=== PATIENT | male | born 1955 | race African-American/Black ===

== ENCOUNTER 2023-03-12 04:40 | Observation (INO) | payer MEDICARE ==
[2023-03-12 04:53] VITALS: RESP 18
[2023-03-12 05:13] LABS: Basophils % (A) 1 %; Eosinophils # (A) 0.1 k/uL (0-0.7); Eosinophils % (A) 2 %; HCT 37.7 % (39.0-53.0); HGB 12.6 gm/dL (13.0-17.5); Lymphocytes # (A) 2.6 k/uL (1.0-4.8); Lymphocytes % (A) 44 %; MCH 27.2 pg (25.0-35.0); MCHC 33.3 g/dL (31.0-37.0); MCV 81.6 fL (80.0-100.0); Mean Platelet Volume 10.4; Monocytes # (A) 0.3 k/uL (0-1.0); Monocytes % (A) 4 %; Neutrophils # (A) 2.9 k/uL (1.3-7.7); Neutrophils % (A) 48 %; Platelet Count 129 k/uL (150-450); RBC 4.62 m/uL (4.30-5.90); RDW 13.9 % (11.5-15.5)
[2023-03-12 05:21] LABS: INR 0.9 (<1.2); Partial Thromboplastin Time 23.1 sec (22.0-30.0); Prothrombin Time 10.3 sec (10.0-12.5)
[2023-03-12 05:24] LABS: ALT 19 U/L (4-49); AST 33 U/L (17-59); African American GFR (CKD) 74 (>60 ml/min/1.73 sqM); Alkaline Phosphatase 82 U/L (38-126); Anion Gap 4 mmol/L; Blood Urea Nitrogen 21 mg/dL (9-20); Carbon Dioxide 25 mmol/L (22-30); Chloride 113 mmol/L (98-107); Glucose 157 mg/dL (74-99); Lipase 220 U/L (23-300); Magnesium 2.1 mg/dL (1.6-2.3); Non-African American GFR(CKD) 64 (>60 ml/min/1.73 sqM); Potassium 3.9 mmol/L (3.5-5.1); Sodium 142 mmol/L (137-145); Total Bilirubin 0.3 mg/dL (0.2-1.3)
[2023-03-12 05:32] LABS: NT-Pro-B-Type Natriuretic Pept 120 pg/mL
--- NOTE | 2023-03-12 05:54 | XR ---
EXAM: XR Chest, 2 Views CLINICAL HISTORY: ITS.REASON XR Reason: Chest Pain TECHNIQUE: Frontal and lateral views of the chest. COMPARISON: No relevant prior studies available. FINDINGS: Lungs: Unremarkable. No consolidation. Pleural space: Unremarkable. No pneumothorax. Heart: Unremarkable. No cardiomegaly. Mediastinum: Unremarkable. Normal mediastinal contour. Bones/joints: Unremarkable. No acute fracture. IMPRESSION: Normal chest x-rays.
[2023-03-12] MEDS ORDERED: NALOXONE 0.4 MG/ML 1 ML VIAL IV PRN (06:40)
--- NOTE | 2023-03-12 06:40 | ED ---
Chest Pain HPI - General Chief Complaint: Chest Pain Stated Complaint: Chest pain Time Seen by Provider: 03/12/23 04:43 Source: patient, EMS Mode of arrival: EMS Limitations: no limitations - Related Data Allergies Allergy/AdvReac Type Severity Reaction Status Date / Time No Known Allergies Allergy Verified 03/12/23 04:46 Review of Systems ROS Statement: Those systems with pertinent positive or pertinent negative responses have been documented in the HPI. ROS Other: All systems not noted in ROS Statement are negative. Past Medical History Past Medical History: Hypertension Additional Past Surgical History / Comment(s): bowel resection Past Psychological History: No Psychological Hx Reported Smoking Status: Current every day smoker Past Alcohol Use History: Rare Past Drug Use History: Cocaine General Exam Limitations: no limitations Course Vital Signs 03/12/23 03/12/23 04:42 06:25 Temperature 97.4 F L Pulse Rate 66 75 Respiratory 18 18 Rate Blood Pressure 176/71 148/89 O2 Sat by Pulse 98 96 Oximetry Chest Pain MDM - MDM Was pt. sent in by a medical professional or institution (, PA, LINING FELLER, urgent care, hospital, or retirement...) When possible be specific @ -[No] Did you speak to anyone other than the patient for history (EMS, parent, family, police, friend...)? What history was obtained from this source @ -[No] Did you review nursing and triage notes (agree or disagree)? Why? @ -[I reviewed and agree with nursing and triage notes] Were old charts reviewed (outside hosp., previous admission, EMS record, old EKG, old radiological studies, urgent care reports/EKG's, retirement records)? Report findings @ -[No old charts were reviewed] Differential Diagnosis (chest pain, altered mental status, abdominal pain women, abdominal pain men, vaginal bleeding, weakness, fever, dyspnea, syncope, headache, dizziness, GI bleed, back pain, seizure, CVA, palpatations, mental health, musculoskeletal)? @ -[not applicable] EKG interpreted by me (3pts min.). @ -Yes and demonstrates sinus rhythm with a rate of 64. SC interval 177. QRS 90. QTc of 404. No acute ST segment elevations. Inverted T wave lead V4 through V6 X-rays interpreted by me (1pt min.). @ -[None done] CT interpreted by me (1pt min.). @ -[None done] U/S interpreted by me (1pt. min.). @ -[None done] What testing was considered but not performed or refused? (CT, X-rays, U/S, labs)? Why? @ -[None] What meds were considered but not given or refused? Why? @ -[None] Did you discuss the management of the patient with other professionals (harry davis i.e. , PA, LINING FELLER, lab, RT, psych nurse, social science manager, manager financial, teacher, u.s. revenue officer, employment case manager)? Give summary @ -[No] Was smoking cessation discussed for >3mins.? @ -[No] Was critical care preformed (if so, how long)? @ -[No] Were there social determinants of health that impacted care today? How? (Homelessness, low income, unemployed, alcoholism, drug addiction, transportation, low edu. Level, literacy, decrease access to med. care, retirement, rehab)? @ -[No] Was there de-escalation of care discussed even if they declined (Discuss DNR or withdrawal of care, Hospice)? DNR status @ -[No] What co-morbidities impacted this encounter? (DM, HTN, Smoking, COPD, CAD, Cancer, CVA, ARF, Chemo, Hep., AIDS, mental health diagnosis, sleep apnea, morbid obesity)? @ -[None] Was patient admitted / discharged? Hospital course, mention meds given and route, prescriptions, significant lab abnormalities, going to OR and other pertinent info. @ -[hospital course] Undiagnosed new problem with uncertain prognosis? @ -[No] Drug Therapy requiring intensive monitoring for toxicity (Heparin, Nitro, Insulin, Cardizem)? @ -[No] Were any procedures done? @ -[No] Diagnosis/symptom? @ -[default] Acute, or Chronic, or Acute on Chronic? @ -[default] Uncomplicated (without systemic symptoms) or Complicated (systemic symptoms)? @ -[default] Side effects of treatment? @ -[No] Exacerbation, Progression, or Severe Exacerbation? @ -[No] Poses a threat to life or bodily function? How? (Chest pain, [place], [place], pneumonia, PE, COPD, DKA, ARF, appy, cholecystitis, CVA, Diverticulitis, Homicidal, [place]wey icidal, threat to staff... and all critical care pts) @ -[No] Disposition Clinical Impression: Chest pain, Abnormal EKG Disposition: ADMITTED IP TO THIS [facility] Condition: Stable Is patient prescribed a controlled substance at d/c from ED?: No Time of Disposition: 06:40 Decision to Admit Reason: Admit from EC Decision Date: 03/12/23 Decision Time: 06:40
[2023-03-12] MEDS ORDERED: ASPIRIN 81 MG PO STA (06:44)
[2023-03-12] MEDS ORDERED: ONDANSETRON 4 MG/2 ML VIAL IVP PRN (07:46)
[2023-03-12] MEDS ORDERED: ACETAMINOPHEN TAB 325 MG TAB PO PRN (07:46)
[2023-03-12] MEDS ORDERED: MELATONIN 3 MG TABLET PO PRN (07:46)
[2023-03-12] MEDS ORDERED: HYDROcodone/APAP 5-325MG 1 EACH TAB PO PRN (07:46)
[2023-03-12] MEDS ORDERED: PANTOPRAZOLE 40 MG TABLET PO SCH (08:00)
[2023-03-12] MEDS ORDERED: METOPROLOL TARTRATE 12.5 MG TAB PO SCH (09:00)
[2023-03-12] MEDS ORDERED: NICOTINE 21MG/24HR PATCH TRANSDERM SCH (09:00)
[2023-03-12] MEDS ORDERED: ASPIRIN 81 MG PO SCH (09:00)
[2023-03-12] MEDS ORDERED: ENOXAPARIN 40 MG/0.4 ML SYRINGE SQ SCH (09:00)
[2023-03-12] MEDS ORDERED: amLODIPine 5 MG TAB PO SCH (09:00)
[2023-03-12] MEDS ORDERED: ATORVASTATIN 40 MG TAB PO SCH (09:00)
--- NOTE | 2023-03-12 10:33 | P.CRDCN ---
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 He is new to the [facility] as he is moved from [place]. He has a past medical history of hypertension, active tobacco use and dependence. We have been asked to evaluate the patient for chest pain. We are seeing the patient today in the emergency center waiting for a bed on the observation unit. Patient gives history of left chest pain mid area lateral to the midsternal line. He states it is light in nature, not sharp. He states he did have some ache in his left arm the other day. He states he has a little lightheadedness. He has not had any previous cardiac workup and denies having history of diabetes. His initial blood pressure 176/71. Patient has been started on amlodipine 5 mg daily, aspirin 81 mg daily, Lipitor 40 mg daily and nicotine patch. EKG sinus rhythm with Q waves in the inferior leads possible LVH Chest x-ray: No acute findings D-dimer 0.23. Hemoglobin 12.6, platelet count 129, WBC 6 Home cardiac medications: None are listed Review Of Systems: At the time of my evaluation: Constitutional: No fever, no chills. No weakness, fatigue or lethargy. EENT: No headache. No dizziness. Lungs: No shortness of breath, cough, no sputum production. No wheezing. Cardiovascular: + chest pain, no lower extremity edema. No palpitations. No paroxysmal nocturnal dyspnea. No orthopnea. No lightheadedness or dizziness. No syncopal episodes. Abdominal: No abdominal pain. No nausea, vomiting. No diarrhea. No constipation. No bloody or tarry stools. Genitourinary: No dysuria.. No urinary retention. Musculoskeletal: No myalgias. No muscle weakness, no frequent falls. No back pain. No neck pain. Integumentary: No wounds. No rash. No unusual bruising. Neurologic: No aphasia. No facial droop. No change in mentation. No head injury. No headache. Physical examination: Gen: This is a 67-year-old black male in no acute distress VS: reviewed HEENT: Head is atraumatic, normocephalic. Pupils equal, round. Sclerae is anicteric. NECK: Supple. No JVD. . LUNGS: Clear to auscultation. No wheezes or rhonchi. No intercostal retractions. HEART: Regular rate and rhythm. No murmur. ABDOMEN: Soft No tenderness. EXTREMITIES: No pedal edema. No calf tenderness. NEUROLOGICAL: Patient is awake, alert and oriented x3. Assessment: Atypical chest pain, acute coronary syndrome ruled out with negative troponins Thrombocytopenia Hypertension Elevated blood sugar Tobacco use and dependence Plan: Continue current medications Schedule patient for stress echocardiogram after third troponin is negative Obtain 2-D echocardiogram and Doppler study to assess cardiac structure and function If testing is unremarkable, patient is cleared from cardiology for discharge home. Thank you kindly for this consultation. Nurse practitioner note has been reviewed, I agree with documented findings and plan of care. Patient was seen and examined. Past Medical History Past Medical History: Hypertension Additional Past Surgical History / Comment(s): bowel resection Past Psychological History: No Psychological Hx Reported Smoking Status: Current every day smoker Past Alcohol Use History: Rare Past Drug Use History: Cocaine Medications and Allergies Home Medications Medication Instructions Recorded Confirmed Type No Known Home Medications 03/12/23 03/12/23 History Allergies Allergy/AdvReac Type Severity Reaction Status Date / Time No Known Allergies Allergy Verified 03/12/23 07:09 Physical Exam Vitals: Vital Signs Temp Pulse Resp BP Pulse Ox 03/12/23 07:33 62 18 142/78 95 03/12/23 06:25 75 18 148/89 96 03/12/23 04:42 97.4 F L 66 18 176/71 98 Intake and Output 03/11/23 03/12/23 03/12/23 22:59 06:59 14:59 Other: Weight 99.79 kg Results 03/12/23 04:47 03/12/23 04:47 Cardiac Enzymes 03/12/23 03/12/23 Range/Units 04:47 04:47 AST 33 (17-59) U/L Troponin I <0.012 (0.000-0.034) ng/mL Coagulation 03/12/23 Range/Units 04:47 PT 10.3 (10.0-12.5) sec APTT 23.1 (22.0-30.0) sec CBC 03/12/23 Range/Units 04:47 WBC 6.0 (3.8-10.6) k/uL RBC 4.62 (4.30-5.90) m/uL Hgb 12.6 L (13.0-17.5) gm/dL Hct 37.7 L (39.0-53.0) % Plt Count 129 L (150-450) k/uL Comprehensive Metabolic Panel 03/12/23 Range/Units 04:47 Sodium 142 (137-145) mmol/L Potassium 3.9 (3.5-5.1) mmol/L Chloride 113 H (98-107) mmol/L Carbon Dioxide 25 (22-30) mmol/L BUN 21 H (9-20) mg/dL Creatinine 1.18 (0.66-1.25) mg/dL Glucose 157 H (74-99) mg/dL Calcium 9.0 (8.4-10.2) mg/dL AST 33 (17-59) U/L ALT 19 (4-49) U/L Alkaline Phosphatase 82 (38-126) U/L Total Protein 7.0 (6.3-8.2) g/dL Albumin 4.0 (3.5-5.0) g/dL Current Medications Generic Name Dose Route Start Last Admin Trade Name Freq PRN Reason Stop Dose Admin Acetaminophen 650 mg 03/12/23 07:46 Acetaminophen Tab 325 Mg Tab PO Q6HR PRN Mild Pain or Fever > 100.5 Hydrocodone Bitart/Acetaminophen 1 each 03/12/23 07:46 Hydrocodone/Apap 5-325mg 1 Each Tab PO Q4HR PRN Moderate Pain (Scale 4 to 6) Amlodipine Besylate 5 mg 03/12/23 09:00 Amlodipine 5 Mg Tab PO DAILY [facility] Aspirin 81 mg 03/12/23 09:00 Aspirin 81 Mg PO DAILY [facility] Atorvastatin Calcium 40 mg 03/12/23 09:00 Atorvastatin 40 Mg Tab PO DAILY [facility] Enoxaparin Sodium 40 mg 03/12/23 09:00 Enoxaparin 40 Mg/0.4 Ml Syringe SQ DAILY [facility] Melatonin 3 mg 03/12/23 07:46 Melatonin 3 Mg Tablet PO HS PRN Insomnia Naloxone HCl 0.2 mg 03/12/23 06:40 Naloxone 0.4 Mg/Ml 1 Ml Vial IV Q2M PRN Opioid Reversal Nicotine 1 patch 03/12/23 09:00 Nicotine 21mg/24hr Patch TRANSDERM DAILY [facility] Ondansetron HCl 4 mg 03/12/23 07:46 Ondansetron 4 Mg/2 Ml Vial IVP Q8HR PRN Nausea And Vomiting Pantoprazole Sodium 40 mg 03/12/23 08:00 Pantoprazole 40 Mg Tablet PO AC-BRKFST RAZIA Intake and Output 03/11/23 03/12/23 03/12/23 22:59 06:59 14:59 Other: Weight 99.79 kg 03/12/23 04:47 03/12/23 04:47
[2023-03-12 12:11] LABS: Amphetamine Screen,Urine Not Detected (NotDetected); Barbiturate Screen,Urine Not Detected (NotDetected); Benzodiazepines Screen,Urine Not Detected (NotDetected); Cocaine Screen,Urine Not Detected (NotDetected); Methadone Screen, Urine Not Detected (NotDetected); Opiate Screen,Urine Not Detected (NotDetected); Oxycodone Screen, Urine Not Detected (NotDetected); Phencyclidine Screen,Urine Not Detected (NotDetected); Tricyclic Antidepressant,Urine Not Detected (NotDetected); Urn Cannabinoid Scrn Not Detected (NotDetected)
--- NOTE | 2023-03-12 12:34 | CA ---
Transthoracic Echo Report Name: Nilesh Foy Age: 67 Gender: M : 1955 Exam Date: 03/12/2023 09:29 Exam Location: [facility] Ht (in): 70 Wt (lb): 220 Ordering Physician: Cecelia Van DO Attending/Referring Phys: [id number], Carlota Quality Control Engineer Jose Carlos Gr RDCS Procedure CPT: Indications: chest pain, abnormal ekg Cardiac Hx: Technical Quality: Fair Contrast 1: Total Dose (mL): Contrast 2: Total Dose (mL): MEASUREMENTS (Male / Female) Normal Values 2D ECHO LV Diastolic Diameter PLAX 4.5 cm 4.2 - 5.9 / 3.9 - 5.3 cm LV Systolic Diameter PLAX 3.0 cm IVS Diastolic Thickness 1.6 cm 0.6 - 1.0 / 0.6 - 0.9 cm LVPW Diastolic Thickness 1.4 cm 0.6 - 1.0 / 0.6 - 0.9 cm LV Relative Wall Thickness 0.7 RV Internal Dim ED PLAX 3.2 cm LVOT Diameter 2.2 cm Aortic Root Diameter 3.2 cm LA Systolic Diameter LX 3.2 cm 3.0 - 4.0 / 2.7 - 3.8 cm LV Diastolic Volume MOD BP 50.3 cm??? 67 - 155 / 56 - 104 cm??? LV Systolic Volume MOD BP 16.1 cm??? 22 - 58 / 19 - 49 cm??? LV Ejection Fraction MOD BP 67.9 % >= 55 % LV Cardiac Index MOD BP 1003.4 cm???/min???m??? LV Diastolic Volume MOD 4C 58.4 cm??? LV Systolic Volume MOD 4C 16.3 cm??? LV Ejection Fraction MOD 4C 72.0 % LV Cardiac Index MOD 4C 1234.2 cm???/min???m??? LV Diastolic Length 4C 6.9 cm LV Systolic Length 4C 5.8 cm LV Diastolic Volume MOD 2C 43.1 cm??? LV Systolic Volume MOD 2C 15.8 cm??? LV Ejection Fraction MOD 2C 63.3 % LV Cardiac Index MOD 2C 801.9 cm???/min???m??? LV Diastolic Length 2C 6.9 cm LV Systolic Length 2C 5.7 cm LA Volume 61.3 cm??? 18 - 58 / 22 - 52 cm??? LA Volume Index 27.3 cm???/m??? 16 - 28 cm???/m??? DOPPLER AV Peak Velocity 175.8 cm/s AV Peak Gradient 12.4 mmHg LVOT Peak Velocity 125.4 cm/s LVOT Peak Gradient 6.3 mmHg LVOT Velocity Time Integral 25.0 cm LVOT Stroke Volume 94.3 cm??? LVOT Stroke Volume Index 43.4 ml/m??? LVOT Cardiac Index 2766.4 cm???/min???m??? AV Area Cont Eq pk 2.7 cm??? MV Peak Velocity 92.7 cm/s MV Peak Gradient 3.4 mmHg MV Mean Velocity 50.8 cm/s MV Mean Gradient 1.2 mmHg MV Velocity Time Integral 35.3 cm MR Peak Velocity 408.9 cm/s MR Peak Gradient 66.9 mmHg Mitral E Point Velocity 90.7 cm/s Mitral A Point Velocity 78.3 cm/s Mitral E to A Ratio 1.2 MV Deceleration Time 186.9 ms MV E' Velocity 6.1 cm/s Mitral E to MV E' Ratio 14.9 TR Peak Velocity 179.3 cm/s TR Peak Gradient 12.9 mmHg Right Ventricular Systolic Press 17.9 mmHg PV Peak Velocity 74.0 cm/s PV Peak Gradient 2.2 mmHg FINDINGS Left Ventricle Normal LV size. Mild to moderate LVH. Left ventricular ejection fraction is estimated at55-60 %. Right Ventricle Upper limits of normal in size. Right Atrium Normal right atrial size. Left Atrium Mild left atrial dilatation. LA volume index= 28ml/m2 Mitral Valve Structurally normal mitral valve. Moderate MR. Aortic Valve Trileaflet aortic valve. No aortic stenosis. No aortic regurgitation. Tricuspid Valve Structurally normal tricuspid valve. Trace TR. Pulmonic Valve Pulmonic valve not well visualized. No pulmonic regurgitation. Pericardium Normal pericardium. Aorta Normal size aortic. CONCLUSIONS Normal LV systolic function Moderate mitral regurgitation Previewed by: Dr. Eduard Clancy MD (Electronically Signed) Final Date: 12 March 2023 12:33
--- NOTE | 2023-03-12 13:00 | P.HPIM ---
History of Present Illness H&P Date: 03/12/23 History of Presenting Illness: Patient is a very pleasant 67-year-old male with a past medical history of hypertension not currently on any medications, nicotine dependence, history of bowel resection, and cocaine use. He presented to the emergency department with a chief complaint of chest pain and shortness of breath beginning around approximately 3 AM when he was at work. 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 Patient describes pain as almost a gas pain but states it stayed in his left anterior chest. He reports pain was so severe it took his breath away. He denies having any diaphoresis, dizziness, lightheadedness, palpitations, cough or congestion, abdominal pain, nausea, vomiting, or experiencing any numbness/tingling/weakness/swelling in his extremities. Patient underwent full evaluation in the emergency department. Vital signs upon arrival show blood pressure 176/71, heart rate 66, respiratory rate 18, temp 97.4 F, and SpO2 of 98% on room air. EKG completed revealing sinus rhythm at 64 bpm with signs of left ventricular hypertrophy and T wave inversion in inferior lateral leads I, II, aVF, and V4 through V6, no noted ST elevation upon personal review and interpretation. Chest x-ray was negative for acute cardiopulmonary process. Labs completed and reviewed. CBC showing bicytopenia with hemoglobin of 12.6 and platelet count of 129. Coagulation profile normal findings. BMP revealing mild hyperchloremia with chloride of 113 and prerenal azotemia with BUN of 21. Glucose slightly elevated at 157. Liver profile unremarkable. Magnesium normal findings at 2.1. Troponin less than 0.012 and proBNP of 120. Lipase normal findings at 220. Patient admitted under our services with consultation to cardiology. Review of systems: Pertinent positives and negatives as discussed in HPI, a complete review of systems was performed and all other systems are negative. Physical exam: Vital signs reviewed and stable. General: Nontoxic, no distress and appears stated age. Derm: Skin warm and dry, normal coloration for ethnicity. Head: Atraumatic, normocephalic and symmetric. Eyes: EOMs intact, no lid lag, and anicteric sclera Mouth: no lip lesions, mucus membranes moist Cardiovascular: regular rate and rhythm with normal S1S2, no murmur, positive posterior tibial pulses bilaterally, and cap refill < 2 seconds. Lungs: Respirations even, regular, and unlabored on room air. Lungs CTA bilaterally, no rhonchi, no rales, no wheezing, and no accessory muscle usage. Abdominal: soft, nontender to palpation, no guarding, no appreciable organomegaly Ext: ROM intact. No gross muscle atrophy, no edema, no contractures Neuro: Speech clear, face symmetrical and CN II-XII grossly intact with no noted focal neuro deficits Psych: Alert and oriented to person, place, time, and situation. Appropriate and pleasant affect. Assessment and Plan of Care: Chest pain, rule out acute coronary event Hypertension History of cocaine use -Cardiology consulted, appreciate recommendations -Telemetry monitoring -Trend troponins -NPO until evaluated by cardiology, may then advance to cardiac diet -Patient started on aspirin 81 mg daily and atorvastatin 40 mg daily -Patient also started on amlodipine 5 mg daily for treatment of his hypertension as we will avoid beta-blockers secondary to his history of cocaine use. -Lipid profile and hemoglobin A1c with a.m. labs. -Echocardiogram completed and awaiting results -Urine drug screen Data and imaging reviewed: As stated above in HPI. The patient is admitted with an anticipated less than 2 midnight stay for evaluation of chest pain. CODE STATUS: Full code DVT prophylaxis: Lovenox Anticipated discharge date: 24 to [address]: Home Patient was seen independently by Nurse Practitioner. This document was prepared using [employer] dictation software. Please allow for errors in hook and eye sewing machine operator while rare they do occur. Sukumar Le NP rendered care for this patient independently, reviewed the findings and plan as documented in the note above. I did not physically speak with or examine the patient on this hector Past Medical History Past Medical History: Hypertension Additional Past Surgical History / Comment(s): bowel resection Past Psychological History: No Psychological Hx Reported Smoking Status: Current every day smoker Past Alcohol Use History: Rare Past Drug Use History: Cocaine Medications and Allergies Home Medications Medication Instructions Recorded Confirmed Type Atorvastatin [Lipitor] 40 mg PO DAILY 30 Days #30 tab 03/12/23 Rx amLODIPine [Norvasc] 5 mg PO DAILY 30 Days #30 tab 03/12/23 Rx Allergies Allergy/AdvReac Type Severity Reaction Status Date / Time No Known Allergies Allergy Verified 03/12/23 07:09 Physical Exam Vitals: Vital Signs Temp Pulse Resp BP Pulse Ox 03/12/23 07:33 62 18 142/78 95 01/26/24 06:25 75 18 148/89 96 03/12/23 04:42 97.4 F L 66 18 176/71 98 Intake and Output 03/11/23 03/12/23 03/12/23 22:59 06:59 14:59 Other: Weight 99.79 kg Results CBC & Chem 7: 03/12/23 04:47 03/12/23 04:47 Labs: Abnormal Lab Results - Last 24 Hours (Table) 03/12/23 03/12/23 Range/Units 04:47 04:47 Hgb 12.6 L (13.0-17.5) gm/dL Hct 37.7 L (39.0-53.0) % Plt Count 129 L (150-450) k/uL Chloride 113 H (98-107) mmol/L BUN 21 H (9-20) mg/dL Glucose 157 H (74-99) mg/dL
--- NOTE | 2023-03-12 13:30 | CA ---
Stress Echo Report Nilesh Foy Age: 67 Gender: M : 1955 Exam Date: 03/12/2023 12:10 Exam Location: [facility] Ht (in): 71 Wt (lb): 220 Ordering Physician: Lilia Frazier Referring Physician: [id number] Terrell Securities Clerk: KYARA, Technologist Procedure CPT: Indication: CP, if 3rd Troponin is negative ICD-9 Codes: Rhythm: Patient History: Chest pain and shortness of breath Cardiac Medications: Medications in past 24 hours: Contrast: Stress Results Protocol: Samm Total dose(mL): Exercise Duration (min:sec): 4:[address] Depression (mm): Angina Score: Han Score: METS: 5.9 Resting HR: 62 Resting BP: 151 / 80 Peak HR: 132 Peak BP: 208 / 68 Max Predicted HR: 155 85 % Max Predicted HR Target HR: 132 Double Product: [id number] Stress Summary: BP Response: Reason for Termination: Reached target heart rate or work-load Cardiac Symptoms: No Symptoms ECG Analysis Resting ECG: Stress ECG: Arrhythmia: Echo Analysis Resting Echo: Peak Echo Analysis: MEASUREMENTS (Male/Female) Normal Values CONCLUSIONS Good exercise tolerance Mild EKG changes in response to exercise likely secondary to the baseline EKG abnormalities Normal echocardiogram in response to exercise Dr. Eduard Clancy MD (Electronically Signed) Final Date: 12 March 2023 13:29
--- NOTE | 2023-03-12 14:41 | P.DS ---
Providers Date of admission: 03/12/23 06:40 Expected date of discharge: 03/12/23 Attending physician: Leora Morton MD Consults: 03/12/23 06:40 Consult Physician Urgent Consulting Provider: [facility] Consult Reason/Comments: acute chest pain, abn ekg Do you want consulting provider notified?: Yes Primary care physician: Stated None Hospital Course: Discharge Diagnosis: Chest pain, acute coronary event ruled out. Hypertension History of cocaine use Hospital Course: Patient is a very pleasant 67-year-old male with a past medical history of hypertension not currently on any medications, nicotine dependence, history of bowel resection, and history of cocaine use. He presented to the emergency department with a chief complaint of chest pain and shortness of breath beginning around approximately 3 AM when he was at work. 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 Patient describes pain as almost a gas pain but states it stayed in his left anterior chest. He reports pain was so severe it took his breath away. He denies having any diaphoresis, dizziness, lightheadedness, palpitations, cough or congestion, abdominal pain, nausea, vomiting, or experiencing any numbness/tingling/weakness/swelling in his extremities. Patient underwent full evaluation in the emergency department. Vital signs upon arrival show blood pressure 176/71, heart rate 66, respiratory rate 18, temp 97.4 F, and SpO2 of 98% on room air. EKG completed revealing sinus rhythm at 64 bpm with signs of left ventricular hypertrophy and T wave inversion in inferior lateral leads I, II, aVF, and V4 through V6, no noted ST elevation upon personal review and interpretation. Chest x-ray was negative for acute cardiopulmonary process. Labs completed and reviewed. CBC showing bicytopenia with hemoglobin of 12.6 and platelet count of 129. Coagulation profile normal findings. BMP revealing mild hyperchloremia with chloride of 113 and prerenal azotemia with BUN of 21. Glucose slightly elevated at 157. Liver profile unremarkable. Magnesium normal findings at 2.1. Troponin less than 0.012 and proBNP of 120. Lipase normal findings at 220. Patient admitted under our services with consultation to cardiology. He reported total resolution of chest pain since arrival to our facility and had no further complaints. D-dimer was obtained and negative at 0.23. Troponins were trended negative at less than 0.012, less than 0.012 and 0.014. Patient was evaluated by cardiology recommending a stress echo be completed. Echocardiogram was completed revealing preserved EF of 55 to 60% with moderate mitral regurgitation. Stress echo then completed with reports of good exercise tolerance and mild EKG changes in response to exercise likely secondary to baseline EKG abnormalities with normal echocardiogram and response to exercise. Cardiology clearing patient from cardiac perspective for discharge. Patient remains free from chest pain or any other complaints at this time. He is medically stable for discharge. Patient was educated on the importance of medication compliance for treatment of hypertension. Patient discharged home at this time and to follow-up outpatient with PCP and cardiology. Blood pressure 142/78 at time of discharge. Physical exam: Vital signs reviewed and stable. General: Nontoxic, no distress and appears stated age. Derm: Skin warm and dry, normal coloration for ethnicity. Head: Atraumatic, normocephalic and symmetric. Eyes: EOMs intact, no lid lag, and anicteric sclera Mouth: no lip lesions, mucus membranes moist Cardiovascular: regular rate and rhythm with normal S1S2, no murmur, positive posterior tibial pulses bilaterally, and cap refill < 2 seconds. Lungs: Respirations even, regular, and unlabored on room air. Lungs CTA bilaterally, no rhonchi, no rales, no wheezing, and no accessory muscle usage. Abdominal: soft, nontender to palpation, no guarding, no appreciable organomegaly Ext: ROM intact. No gross muscle atrophy, no edema, no contractures Neuro: Speech clear, face symmetrical and CN II-XII grossly intact with no noted focal neuro deficits Psych: Alert and oriented to person, place, time, and situation. Appropriate and pleasant affect. A total of 33 minutes of time were spent preparing this complex discharge summary. Pt was discharged on 03/12/2023 at 2:43 PM. Patient was seen independently by Nurse Practitioner. This document was prepared using [employer] dictation software. Please allow for errors in fruit and vegetable classer while rare they do occur. Sukumar Le NP rendered care for this patient independently, reviewed the findings and plan as documented in the note above. I did not physically speak with or examine the patient on this hector Patient Condition at Discharge: Stable Plan - Discharge Summary New Discharge Prescriptions: New Atorvastatin [Lipitor] 40 mg PO DAILY 30 Days #30 tab amLODIPine [Norvasc] 5 mg PO DAILY 30 Days #30 tab Discharge Medication List Atorvastatin [Lipitor] 40 mg PO DAILY 30 Days #30 tab 03/12/23 [Rx] amLODIPine [Norvasc] 5 mg PO DAILY 30 Days #30 tab 03/12/23 [Rx] Follow up Appointment(s)/Referral(s): Eduard Clancy MD [STAFF PHYSICIAN] - 1 Week Erik Palacios MD [STAFF PHYSICIAN] - 1 Week Activity/Diet/Wound Care/Special Instructions: Activity: As tolerated. Take breaks as needed. Diet: Heart healthy and carb consistent diet. Avoid salts, or foods with hidden salts such as canned or boxed foods and frozen dinners. Extra salt makes your heart work harder and traps the fluid in your body for longer. Special Instructions: Take all of your medications as directed and remember to keep all of your doctor's appointments and follow-up as needed. Congratulations on getting your new car, hopefully you get out of here in time to pick it up today! Thank you for allowing us to participate in your care, it was truly a pleasure having you for our patient!!! Discharge Disposition: HOME SELF-CARE
[2023-03-12 15:18] VITALS: BP 154/95; PULSE 72; TEMP 98.1
== END 2023-03-12 15:15 | disposition home or self-care (01) ==
LOC: EC 04:40 → 6NMEDSUR 06:40
PROVIDERS: ADMIT Internal Medicine; ATTEND Internal Medicine
DX: R07.89 Other chest pain (principal); D69.6 Thrombocytopenia, unspecified; R94.31 Abnormal electrocardiogram [ECG] [EKG]; R73.9 Hyperglycemia, unspecified; F14.90 Cocaine use, unspecified, uncomplicated; I10 Essential (primary) hypertension; F17.200 Nicotine dependence, unspecified, uncomplicated; Z79.82 Long term (current) use of aspirin; Z79.899 Other long term (current) drug therapy
CPT/HCPCS: 96372; 99285; 36415; 93005; 93306; 93351; 85379; 83880; 80053; 83690; 83735; 84484; 85025; 85610; 85730; 80306; 83036; 71046; G0378; J1650

== ENCOUNTER 2023-06-22 14:45 | Emergency (ER) | payer MEDICARE ==
[2023-06-22 15:14] VITALS: BP 152/64; PULSE 87; RESP 16; TEMP 98.1
--- NOTE | 2023-06-22 15:17 | ED ---
General Adult HPI - General Chief complaint: Headache Stated complaint: Hypertension Time Seen by Provider: 06/22/23 15:10 Source: patient, RN notes reviewed, old records reviewed Mode of arrival: ambulatory Limitations: no limitations - History of Present Illness Initial comments: 67-year-old male presenting for medication refill. Patient states has been out of his antihypertensive medication for approximately 1 month. He has an appointment with primary care in approximately 4 weeks. He is requesting medication refill. He reports a mild intermittent headache during this time which she states is typical when his blood pressure is elevated. No chest pain. No dyspnea. No other complaints. - Related Data Previous Rx's Medication Instructions Recorded Atorvastatin [Lipitor] 40 mg PO DAILY 30 Days #30 tab 06/22/23 amLODIPine [Norvasc] 5 mg PO DAILY 30 Days #30 tab 06/22/23 Allergies Allergy/AdvReac Type Severity Reaction Status Date / Time No Known Allergies Allergy Verified 06/22/23 14:51 Review of Systems ROS Statement: Those systems with pertinent positive or pertinent negative responses have been documented in the HPI. ROS Other: All systems not noted in ROS Statement are negative. Past Medical History Past Medical History: Hypertension Additional Past Surgical History / Comment(s): bowel resection Past Psychological History: No Psychological Hx Reported Smoking Status: Current every day smoker Past Alcohol Use History: Rare Past Drug Use History: Cocaine General Exam Limitations: no limitations General appearance: alert, in no apparent distress Head exam: Present: atraumatic, normocephalic Eye exam: Present: normal appearance, PERRL ENT exam: Present: normal exam Neck exam: Present: normal inspection. Absent: tenderness, meningismus Respiratory exam: Present: normal lung sounds bilaterally. Absent: respiratory distress, wheezes Cardiovascular Exam: Present: regular rate, normal rhythm GI/Abdominal exam: Present: soft. Absent: distended, tenderness, guarding Extremities exam: Present: normal inspection Neurological exam: Present: alert, oriented X3, CN II-XII intact. Absent: motor sensory deficit Psychiatric exam: Present: normal affect, normal mood Skin exam: Present: warm, dry, intact Course Vital Signs 06/22/23 14:49 Temperature 98.1 F Pulse Rate 87 Respiratory 16 Rate Blood Pressure 152/64 O2 Sat by Pulse 97 Oximetry Medical Decision Making - Medical Decision Making Was pt. sent in by a medical professional or institution (Dr., PA, TRAFFIC CLERK, urgent care, hospital, or jail...) When possible be specific @ -No Did you speak to anyone other than the patient for history (EMS, parent, family, police, friend...)? What history was obtained from this source @ -No Did you review nursing and triage notes (agree or disagree)? Why? @ -I reviewed and agree with nursing and triage notes Were old charts reviewed (outside hosp., previous admission, EMS record, old EKG, old radiological studies, urgent care reports/EKG's, jail records)? Report findings @ -No old charts were reviewed Differential Diagnosis asymptomatic hypertension, hypertensive urgency, hypertensive emergency EKG interpreted by me (3pts min.). @ -As above X-rays interpreted by me (1pt min.). @ -None done CT interpreted by me (1pt min.). @ -None done U/S interpreted by me (1pt. min.). @ -None done What testing was considered but not performed or refused? (CT, X-rays, U/S, labs)? Why? @ -None What meds were considered but not given or refused? Why? @ -None Did you discuss the management of the patient with other professionals (professionals i.e. , PA, TRAFFIC CLERK, lab, RT, psych nurse, psychiatric social worker, offshore wind turbine technician, teacher, founder chairman and chief creative officer, business case analyst)? Give summary @ -No Was smoking cessation discussed for >3mins.? @ -No Was critical care preformed (if so, how long)? @ -No Were there social determinants of health that impacted care today? How? (Homelessness, low income, unemployed, alcoholism, drug addiction, transportation, low edu. Level, literacy, decrease access to med. care, senior living, rehab)? @ -No Was there de-escalation of care discussed even if they declined (Discuss DNR or withdrawal of care, Hospice)? DNR status @ -No What co-morbidities impacted this encounter? (DM, HTN, Smoking, COPD, CAD, Cancer, CVA, ARF, Chemo, Hep., AIDS, mental health diagnosis, sleep apnea, morbid obesity)? @History of hypertension Was patient admitted / discharged? Hospital course, mention meds given and route, prescriptions, significant lab abnormalities, going to OR and other pertinent info. @ -67-year-old male presenting for medication refill, requesting refill of his blood pressure medication. His amlodipine and Lipitor is refilled with 1 refill. He states he has follow-up with primary care in approximately 1 month. Instructed to return to the emergency department if he should develop any symptoms. Undiagnosed new problem with uncertain prognosis? @ -No Drug Therapy requiring intensive monitoring for toxicity (Heparin, Nitro, Insulin, Cardizem)? @ -No Were any procedures done? @ -No Diagnosis/symptom? @Asymptomatic hypertension Acute, or Chronic, or Acute on Chronic? @Chronic Uncomplicated (without systemic symptoms) or Complicated (systemic symptoms)? @ -Default Side effects of treatment? @ -No Exacerbation, Progression, or Severe Exacerbation? @ -No Poses a threat to life or bodily function? How? (Chest pain, [place], [place], pneumonia, PE, COPD, DKA, ARF, appy, cholecystitis, CVA, Diverticulitis, Homicidal, Suicidal, threat to staff... and all critical care pts) @Risk at this time [ Disposition Clinical Impression: Medication refill Disposition: HOME SELF-CARE Condition: Good Instructions (If sedation given, give patient instructions): Medicine Refill (ED) Additional Instructions: Please follow-up with your primary care provider as planned. Prescriptions: Atorvastatin [Lipitor] 40 mg PO DAILY 30 Days #30 tab amLODIPine [Norvasc] 5 mg PO DAILY 30 Days #30 tab Is patient prescribed a controlled substance at d/c from ED?: No Referrals: None,Stated [Primary Care Provider] - 1-2 days Time of Disposition: 15:25
== END 2023-06-22 15:42 | disposition home or self-care (01) ==
LOC: EC 14:45
DX: I10 Essential (primary) hypertension (principal); Z76.0 Encounter for issue of repeat prescription; F17.200 Nicotine dependence, unspecified, uncomplicated; F14.90 Cocaine use, unspecified, uncomplicated
CPT/HCPCS: 99283

== ENCOUNTER 2023-08-04 10:43 | Emergency (ER) | payer MEDICARE, OTHER ==
[2023-08-04 10:49] VITALS: RESP 18
[2023-08-04] MEDS: cefTRIAXone 1,000 MG VIAL (IM USE) IM STA (11:07)
--- NOTE | 2023-08-04 11:08 | ED ---
ENT HPI - General Chief complaint: Dental/Oral Stated complaint: Oral Pain Time Seen by Provider: 08/04/23 11:00 Source: patient, RN notes reviewed Mode of arrival: ambulatory Limitations: no limitations - History of Present Illness Initial comments: 68-year-old male presenting oral pain x 3 days. Reports he feels as though he may have cracked his tooth on right bottom side when he bit down on a hard food several weeks ago and has had "issues" since then. However, 3 days ago he began to feel worsening pain and swelling since then. There is pain with chewing on that side. Denies fever, chills. - Related Data Previous Rx's Medication Instructions Recorded Atorvastatin [Lipitor] 40 mg PO DAILY 30 Days #30 tab 06/22/23 amLODIPine [Norvasc] 5 mg PO DAILY 30 Days #30 tab 06/22/23 Amoxic-Pot Clav 875-125Mg 1 tab PO Q12HR 10 Days #20 tab 08/04/23 [Augmentin 875-125] Allergies Allergy/AdvReac Type Severity Reaction Status Date / Time No Known Allergies Allergy Verified 08/04/23 10:49 Review of Systems ROS Statement: Those systems with pertinent positive or pertinent negative responses have been documented in the HPI. ROS Other: All systems not noted in ROS Statement are negative. Past Medical History Past Medical History: Hypertension History of Any Multi-Drug Resistant Organisms: None Reported Additional Past Surgical History / Comment(s): bowel resection Past Psychological History: No Psychological Hx Reported Smoking Status: Current every day smoker Past Alcohol Use History: Rare Past Drug Use History: Cocaine General Exam Limitations: no limitations General appearance: alert, in no apparent distress Head exam: Present: atraumatic, normocephalic, normal inspection Eye exam: Present: normal appearance, PERRL, EOMI. Absent: scleral icterus, conjunctival injection, periorbital swelling ENT exam: Present: mucous membranes moist, TM's normal bilaterally, other (Moderate edema on right side of face with mild tenderness to palpation. Oral cavity exam reveals no fluctuant mass or erythema, however tenderness to palpation along right lower gingiva. No drainage) Neck exam: Present: normal inspection. Absent: tenderness, meningismus, lymphadenopathy Respiratory exam: Present: normal lung sounds bilaterally. Absent: respiratory distress, wheezes, rales, rhonchi, stridor Cardiovascular Exam: Present: regular rate, normal rhythm, normal heart sounds. Absent: systolic murmur, diastolic murmur, rubs, gallop, clicks Neurological exam: Present: alert, oriented X3, CN II-XII intact Psychiatric exam: Present: normal affect, normal mood Skin exam: Present: warm, dry, intact, normal color. Absent: rash Course Vital Signs 08/04/23 10:45 Temperature 98 F Pulse Rate 97 Respiratory 18 Rate Blood Pressure 183/63 O2 Sat by Pulse 97 Oximetry Medical Decision Making - Medical Decision Making Was pt. sent in by a medical professional or institution (, EDUARDO, PLANT PULLER, urgent care, hospital, or assisted...) When possible be specific @ -No Did you speak to anyone other than the patient for history (EMS, parent, family, police, friend...)? What history was obtained from this source @ -No Did you review nursing and triage notes (agree or disagree)? Why? @ -I reviewed and agree with nursing and triage notes Were old charts reviewed (outside hosp., previous admission, EMS record, old EKG, old radiological studies, urgent care reports/EKG's, assisted records)? Report findings @ -No old charts were reviewed Differential Diagnosis (chest pain, altered mental status, abdominal pain women, abdominal pain men, vaginal bleeding, weakness, fever, dyspnea, syncope, headache, dizziness, GI bleed, back pain, seizure, CVA, palpatations, mental health, musculoskeletal)? @ -Dental abscess, dental infection, retropharyngeal abscess, peritonsillar abscess, strep pharyngitis EKG interpreted by me (3pts min.). @ -None X-rays interpreted by me (1pt min.). @ -None done CT interpreted by me (1pt min.). @ -None done U/S interpreted by me (1pt. min.). @ -None done What testing was considered but not performed or refused? (CT, X-rays, U/S, labs)? Why? @ -None What meds were considered but not given or refused? Why? @ -Toradol not given for pain due to patient's blood pressure is elevated Did you discuss the management of the patient with other professionals (professionals i.e. , EDUARDO, PLANT PULLER, lab, RT, psych nurse, social sciences professor, bus driver school, teacher, nuclear officer, manager case management)? Give summary @ -No Was smoking cessation discussed for >3mins.? @ -No Was critical care preformed (if so, how long)? @ -No Were there social determinants of health that impacted care today? How? (Homelessness, low income, unemployed, alcoholism, drug addiction, transportation, low edu. Level, literacy, decrease access to med. care, custodial, rehab)? @ -No Was there de-escalation of care discussed even if they declined (Discuss DNR or withdrawal of care, Hospice)? DNR status @ -No What co-morbidities impacted this encounter? (DM, HTN, Smoking, COPD, CAD, Cancer, CVA, ARF, Chemo, Hep., AIDS, mental health diagnosis, sleep apnea, morbid obesity)? @ -None Was patient admitted / discharged? Hospital course, mention meds given and route, prescriptions, significant lab abnormalities, going to OR and other pertinent info. @ -Patient was discharged. Patient was seen and evaluated for right-sided dental pain x 3 days. Patient's blood pressure is elevated at 183/63 upon examination, otherwise vital signs are within normal limits. Patient reports he has been taking his amlodipine as prescribed by his PCP 2 weeks ago and has follow-up appointment to reassess hypertension. There are no cardiopulmonary alarm symptoms or red flag symptoms at this time. Physical examination is remarkable for moderate edema on right side of the face with tenderness to palpation along right lower gingiva. No fluctuant mass present. Patient was given Rocephin injection. Discussed diagnosis of dental infection with patient. Prescribed Augmentin to pharmacy. Supportive care discussed. Advised to follow-up with dentist within the week. Case discussed with my attending Dr. Vargas. Undiagnosed new problem with uncertain prognosis? @ -No Drug Therapy requiring intensive monitoring for toxicity (Heparin, Nitro, Insulin, Cardizem)? @ -No Were any procedures done? @ -No Diagnosis/symptom? @ -Dental infection Acute, or Chronic, or Acute on Chronic? @ -Acute Uncomplicated (without systemic symptoms) or Complicated (systemic symptoms)? @ -Uncomplicated Side effects of treatment? @ -No Exacerbation, Progression, or Severe Exacerbation? @ -No Poses a threat to life or bodily function? How? (Chest pain, [place], [place], pneumonia, PE, COPD, DKA, ARF, appy, cholecystitis, CVA, Diverticulitis, Homicidal, Suicidal, threat to staff... and all critical care pts) @ -Low likelihood Disposition Clinical Impression: Dental infection Disposition: HOME SELF-CARE Condition: Stable Instructions (If sedation given, give patient instructions): Dental Abscess (ED) Additional Instructions: Please take Augmentin as prescribed. Follow-up with dentist within the week. Please return to the Emergency Department if symptoms worsen or any other concerns. Prescriptions: Amoxic-Pot Clav 875-125Mg [Augmentin 875-125] 1 tab PO Q12HR 10 Days #20 tab Is patient prescribed a controlled substance at d/c from ED?: No Referrals: None,Stated [Primary Care Provider] - 1-2 days Time of Disposition: 11:14
[2023-08-04 11:42] VITALS: BP 176/68; PULSE 86; TEMP 98.4
== END 2023-08-04 11:42 | disposition home or self-care (01) ==
LOC: EC 10:43
DX: K04.7 Periapical abscess without sinus (principal); F17.200 Nicotine dependence, unspecified, uncomplicated; F14.90 Cocaine use, unspecified, uncomplicated
CPT/HCPCS: 99282; 96372; J0696